=== PATIENT | male | born 1975 | race Caucasian/White ===

== ENCOUNTER → 2016-08-25 | Outpatient (CLI) | payer OTHER ==
--- NOTE | 2016-08-25 15:03 | REP ---
Chest two views HISTORY: Cough Comparison: 03/05/2016 Minimal peribronchial cuffing is present. The heart is normal in size. The pulmonary vasculature is normal in appearance. The bony structure is intact. IMPRESSION: There is minimal peribronchial cuffing that may be secondary to bronchitis. Signed by Santhosh Villarreal MD 08/25/2016 02:54 P
== END ==
LOC: M WUC 13:55
PROVIDERS: ATTEND Physician Assistant
DX: R50.9 Fever, unspecified (principal); R05 Cough

== ENCOUNTER → 2017-07-24 | Outpatient (CLI) | payer BC ==
--- NOTE | 2017-07-24 13:23 | REP ---
PA and lateral chest: Comparison 08/25/2016. The lung ramires are clear. The cardiac size is normal The harpal, mediastinum, and bony thorax are unremarkable. Impression: Negative PA and lateral chest. Signed by Guillaume Urrutia MD 07/24/2017 01:15 P
== END ==
LOC: M WUC 12:11
PROVIDERS: ATTEND Physician Assistant
DX: R05 Cough (principal)

== ENCOUNTER → 2019-06-30 | Outpatient (REF) | payer BC, OTHER | LOC: M LAB REF 18:54 | PROVIDERS: ATTEND Dermatology | DX: D22.9 Melanocytic nevi, unspecified (principal); D23.9 Other benign neoplasm of skin, unspecified ==

== ENCOUNTER → 2021-03-19 | Outpatient (CLI) | payer SELFPAY ==
--- NOTE | 2021-03-19 11:03 | REP ---
INDICATION: Z02.1 Z57.9. COMPARISON: PA and lateral chest dated 07/24/2017. TECHNIQUE: Upright PA and lateral chest. FINDINGS: The lung ramires are clear. Cardiac size is normal. The harpal, mediastinum and skeletal structures are unremarkable. IMPRESSION: Essentially negative PA and lateral chest There is no interval change. <Electronically signed by Guillaume Urrutia > 03/19/21 [id number]
== END ==
LOC: M WUC 10:45
PROVIDERS: ATTEND Nurse Practitioner Family
DX: Z02.1 Encounter for pre-employment examination (principal); Z57.9 Occupational exposure to unspecified risk factor